=== PATIENT | male | born 1990 | race African-American/Black ===

== ENCOUNTER 2018-11-22 09:52 | Emergency (ER) | payer MEDICAID, SELFPAY ==
[2018-11-22 09:53] VITALS: BP 111/64; PULSE 92; RESP 17; TEMP 36.8; O2SAT 97; BMI 29.1
--- NOTE | 2018-11-22 10:41 | ED.VIS.GEN ---
History of Present Illness Chief Complaint: Bite Informant: Patient Onset: Today Current Severity: Mild Narrative: Patient indicates he was bitten by family dog pet left hand once, dog is healthy, his tetanus is up-to-date, he is right-handed, no other complaints he did apply some glue to the laceration as it was bleeding he denies any numbness weakness paresthesias Past Medical History - Allergies and Home Meds Allergies/Adverse Reactions: Allergies No Known Allergies Allergy (Verified 11/22/18 09:53) Primary Care Physician: Care Physician,No Primary [Primary Care Provider] - Past Medical History: - Smoking Status: Never smoker Review of Systems ROS: - Unremarkable as above General: Denies: Chills, Fever, Sweats Eyes: Denies: Visual changes - bilaterally, Diplopia ENT: Denies: Rhinorrhea, Sore throat Cardiovascular: Denies: Chest pain, Palpitations Respiratory: Denies: Dyspnea, Cough, Dyspnea on exertion Gastrointestinal: Denies: Abdominal pain, Nausea, Vomiting, Diarrhea, Melena, Hematochezia Genitourinary: Denies: Dysuria, Hematuria, Frequency Musculoskeletal: Reports: - - Dog bite left hand as above. Denies: Back pain, Extremity Pain Skin: Denies: Rash, Wounds Neurological: Denies: Headache, Weakness, Numbness Physical Exam Vital Signs/Narrative: Vital Signs Temp Pulse Resp BP Pulse Ox 11/22/18 09:53 98.3 F 92 17 111/64 97 General: Well nourished, Well developed, No Acute Distress Head: Normocephalic, Atraumatic Eyes: Perrl, EOMI ENT: Moist mucous membranes, No rhinorrhea Neck: Supple, Nontender Cardiovascular: Regular rate, Regular rhythm, No murmurs Respiratory: No distress, CTA bilaterally, Chest nontender Abdomen: Soft, Nontender, Nondistended, Normal bowel sounds Back: Nontender, Normal Inspection Extremities: Nontender, No edema, - - He has a laceration 1 cm in the area of the left hand index webspace, it was only partially closed, we did break away the glue to the best of ability, to open the laceration, laceration was then cleansed with soap copiously irrigated in the sink, and then again cleansed with Shur-Clens and copiously irrigated with saline vascular function is normal to all digits flexion extension sensation some minimal pain Skin: Normal color, No rash Neurological: Alert, Oriented x3, Cranial nerves II-XII grossly intact, Normal Strength, Normal Sensation Psychological: Normal affect, Normal Mood Diagnostic/Tx/Re-eval - Medical Decision Making I had a long conversation with the patient his I explained they were concerned that the laceration required suturing or glue I explained this is not indicated for dog bite as it could lead to serious infections and we did break down the glue irrigated copiously he will be started on antibiotics pain management he will follow-up with orthopedics or plastic surgery, he understands risk of infection his tetanus status is up-to-date, he is not to apply glue or any other mechanism to close the wound, he voices clear understanding of that, he is to return for signs of infection, he will be discharged on Augmentin and Naprosyn bulky hand dressing follow-up with Dr. Allred ED Disposition - Plan for ED Patient: Diagnosis: Dog bite Instructions: Dog Bite Prescriptions: Amox/Clavulanate Tablet [Augmentin Tablet] 875 mg PO Q12H #20 tab Prescription Printed Naproxen [Naprosyn] 500 mg PO BID PRN #20 tab Prescription Printed Referrals: Care Physician,No Primary [Primary Care Provider] - Desmond Allred MD [STAFF PHYSICIAN] -
[2018-11-22] MEDS: Amox/Clavulanate 875 MG Tablet PO (10:42)
[2018-11-22] MEDS: HYDROcodone Bitartrate/Apap 5/325 Tablet PO (10:42)
[2018-11-22 10:43] VITALS: BP 107/71; PULSE 74; RESP 18; O2SAT 95
--- NOTE | 2018-11-22 10:47 | ED.DEP ---
ED Disposition - Plan for ED Patient: Diagnosis: Dog bite Instructions: Dog Bite Prescriptions: Amox/Clavulanate Tablet [Augmentin Tablet] 875 mg PO Q12H #20 tab Prescription Printed Naproxen [Naprosyn] 500 mg PO BID PRN #20 tab Prescription Printed Referrals: Desmond Allred MD [STAFF PHYSICIAN] - Care Physician,No Primary [Primary Care Provider] -
== END 2018-11-22 10:48 | disposition home or self-care (01) ==
PROVIDERS: Emergency Provider Emergency Medicine
DX: S61.452A Open bite of left hand, initial encounter (principal); W54.0XXA Bitten by dog, initial encounter; Y93.9 Activity, unspecified; Y92.9 Unspecified place or not applicable; Y99.9 Unspecified external cause status
CPT/HCPCS: 99283

== ENCOUNTER 2021-08-08 02:21 | Emergency (ER) | payer MEDICAID, SELFPAY ==
[2021-08-08 02:22] VITALS: BP 138/101; PULSE 78; RESP 18; TEMP 36.8; O2SAT 97; BMI 32.7
--- NOTE | 2021-08-08 02:51 | EDS_ITS ---
HPI HPI - GI History of Present Illness Chief Complaint: Abd Pain Informant: patient Abdominal Pain/Flank Pain Onset: Days Context: Gradual Onset Timing: Continuous Quality: Aching Location: Epigastric and LUQ Current Severity: Mild Maximum Severity: Mild Worsened by: Food Relieved by: Nothing Nausea/Vomiting/Emesis GI Symptom: Positive for Nausea and Vomiting Onset: Days Quality: Positive for Blood streaks Severity: Mild Diarrhea/Melena/Hematochezia GI Symptom: Negative for Diarrhea, Melena and Hematochezia Associated Symptoms Associated Symptoms: Negative for Dysuria, Frequency, Hematuria and Urgency Narrative Narrative: 31-year-old male no significant past medical history recently tested COVID positive on Saturday. States in the evening he started having a left upper and epigastric dull discomfort with associated nausea vomiting. Believes when he threw up there was a small amount of blood. No large clots. No melena. No fever. He did have loose stools on Saturday. He denies any prior abdominal surgery. Prior similar symptoms: No Recent Illness/Hospitalization: No PFSH PFSH Medical History no medical history no medical history Home Medications ondansetron 4 mg PO Q8H PRN #7 tab 08/08/21 [Rx Last Taken Unknown] pantoprazole [Protonix] 20 mg PO DAILY 20 Days #20 tab 08/08/21 [Rx Last Taken Unknown] sodium chloride [Afrin Saline Nasal Mist] 1 spray INTRANASAL BID PRN 08/08/21 [History Last Taken Unknown] Allergy/AdvReac Type Severity Reaction Status Date / Time No Known Allergies Allergy Verified 11/22/18 09:53 Social History Smoking Status: Never smoker ROS ROS ED ROS Narrative Abdominal pain with nausea and vomiting Review of Systems ROS Unobtainable: Denies due to encephalopathy Constitutional Constitutional ED: Denies fever(s) ENT ENT ED: Denies ear pain Cardiovascular Cardiovascular: Denies chest pain Respiratory/Chest Respiratory/Chest: Denies dyspnea Gastrointestinal Gastrointestinal: Reports abdominal pain, nausea and vomiting; Denies constipation, diarrhea or melena Genitourinary Genitourinary ED: Denies dysuria Musculoskeletal Musculoskeletal: Denies myalgias Integumentary Denies rash Neurologic Neurologic: Denies headache(s) Psychiatric Psychiatric: Denies depression Endocrine Endocrinology: Denies polyuria Hematologic/Lymphatic Hematologic/Lymphatic: Denies easy bruising Allergic/Immunologic Allergic/Immunologic ED: Denies urticaria EXAM Physical Exam Narrative Exam Narrative: 31-year-old male no acute distress vital signs stable afebrile. H EENT exam unremarkable. Neck nontender no lymphadenopathy. Lungs clear to auscultation bilaterally. Heart regular rhythm rate about 80 no murmur. Abdomen soft nondistended normal bowel sounds no peritoneal signs. Currently do not have any significant tenderness. He states when he has the pain its epig astric and left upper quadrant. Right upper quadrant right lower quadrant completely nontender. No hernia or mass. No distention no signs of obstruction. Positive bowel sounds. Moving all 4 extremities. Neurologically is awake and alert with no focal motor deficits. Const Vital Signs: 08/08/21 02:22 Temperature 98.3 F Temperature Source Oral Pulse Rate 78 Respiratory Rate 18 Blood Pressure 138/101 H Blood Pressure Mean 113 Pulse Ox 97 Oxygen Delivery Method Room Air Positive well nourished, well developed and obese; Negative for cachectic, contractures or unkempt General Appearance ED: well developed and NAD; Negative for unkempt, cachectic, contractures or pallor Nutritional Appearance: obese; Negative for cachectic HEENT Reports moist mucous membranes normocephalic and atraumatic; Negative for trauma or tenderness Eyes PERRL and EOMs intact bilaterally Neck no lymphadenopathy, supple and no JVD General: Negative for tenderness Resp normal respiratory effort and clear to auscultation bilaterally Auscultation: Negative for rales, rhonchi or wheezes Cardio regular rate, regular rhythm, S1 normal heart sound, S2 normal heart sound and no murmurs GI non-tender, non-distended and no masses Auscultation: normoactive bowel sounds Palpation: soft; Negative for tender, guarding, rigid or rebound tenderness present Back/Spine no CVA tenderness General Back: Negative for CVA tenderness Extremity full ROM General Extremety ED: Negative for edema or tenderness General Extremity: Negative for edema Neuro moves all extremities Sensorium / Orientation: alert, oriented to person, oriented to place and oriented to time; Negative for orientation impaired, confused, lethargic or stuporous Motor Exam: strength 5/5 throughout Psych mental status grossly normal and thought process normal Appearance: Negative for unkempt Attitude: No agitated Mood & Affect: Negative for depressed or tearful Skin no wounds General Skin Exam: Negative for jaundice or pallor Lesions: no lesions and No lesion noted Rashes: no rashes and No rashes noted MDM MDM MDM Narrative Medical decision making narrative: 31-year-old male with abdominal pain with nausea vomiting. Exam is benign. He has had a small amount of blood-streaked emesis. Did not sound like a [place] tear because it occurred with his first episode emesis. Labs are pending. Currently I do not think he needs any imaging. He will be given IV Zofran and IV fluids. Repeat exam patient is doing well at 3:25 AM. We went over his test results. He will be discharged home with Protonix for gastritis or even a possible ulcer. Zofran for nausea. He knows if he has recurrent hematemesis or melena he needs to be evaluated. His abdomen currently is benign. Lab Data Attestation: I reviewed the patient's lab results. Lab results narrative: CBC shows a white count of 4.9. H&H is 17 and 50. Electrolytes show a gap of 8. A normal BUN of 10 and creatinine 1.2. Liver enzymes show an AST at 90 and ALT of 68. Normal total bilirubin. Lipase 61. Labs: Laboratory Results - last 24 hr 08/08/21 08/08/21 02:58 02:58 WBC 4.9 RBC 6.25 H Hgb 17.4 H Hct 50.7 MCV 81.1 MCH 27.8 MCHC 34.3 RDW Std Deviation 36.4 RDW Coeff of Kishan 12.4 Plt Count 220 MPV 10.0 Immature Gran % (Auto) 0.400 Neut % (Auto) 57.9 Lymph % (Auto) 30.5 [place] % (Auto) 10.8 H Eos % (Auto) 0.2 Baso % (Auto) 0.2 Absolute Neuts (auto) 2.8 Absolute Lymphs (auto) 1.50 Nucleated RBC % 0 Sodium 136 Potassium 3.5 Chloride 104 Carbon Dioxide 24.0 Anion Gap 8 BUN 10 Creatinine 1.21 Estim Creat Clear Calc 84.79 Est GFR (MDRD) Af Amer 89 Est GFR (MDRD) Non-Af 74 BUN/Creatinine Ratio 8.3 L Glucose 101 Calcium 8.7 Total Bilirubin 0.50 AST 90 H ALT 68 H Alkaline Phosphatase 45 Total Protein 7.5 Albumin 3.7 Globulin 3.8 Albumin/Globulin Ratio 1.0 Lipase 61 L Discharge Plan Triage Chief Complaint: Abd Pain ED Provider: Kyle Jon Dx/Rx/DC Orders Clinical Impression: Abdominal pain, Nausea & vomiting, Hematemesis Instructions: ED Gastritis (Adult), ED Abdominal Pain Unkn Cause Male... Prescriptions: New pantoprazole [Protonix] 20 mg tablet,delayed release (DR/EC) 20 mg PO DAILY 20 Days Qty: 20 RF: 0 ondansetron 4 mg tablet,disintegrating 4 mg PO Q8H PRN (Reason: nausea and vomiting) Qty: 7 RF: 0 No Action Afrin Saline Nasal Mist 0.65 % Mist 1 spray INTRANASAL BID PRN (Reason: ALLERGIES) RF: 0 Primary Care Provider: Care Physician,No Primary Referrals: Adis Russell MD [STAFF PHYSICIAN] - 1 Week if not improving Care Physician,No Primary [Primary Care Provider] - Activity Restrictions/Additional Instructions: Plenty of fluids and rest. Increase your diet slowly as tolerated. Zofran as needed for nausea. You may swallow if you are too nauseated to swallow and let it dissolve under your tongue. You only need to take it if you are having nausea or vomiting. Protonix is a medication for your stomach in case you have gastritis which is inflammation in your stomach or an early ulcer. Take it once daily. Follow-up with a local primary care physician if you have worsening throwing up of blood or black stools you need reevaluated. If this continues you may need a upper scope to look at your esophagus and stomach. Disposition Disposition: Home, Self Care
[2021-08-08] MEDS: 0.9% Normal Saline 1,000 ML 1000 ML IV (02:56)
[2021-08-08] MEDS: Ondansetron 4 MG/2 ML Vial IV (02:56)
[2021-08-08 03:02] LABS: Absolute Neutrophil Count 2.8 X10^3/uL (2.0-7.7); Basophil# 0.01 X10^3/uL; Basophil% 0.2 % (0-1); Eosinophil# 0.01 X10^3/uL; Eosinophils% 0.2 % (0-5); Hematocrit 50.7 % (40-54); Hemoglobin 17.4 g/dL (13.0-16.5); Lymphocyte % 30.5 % (19-41); Mean Corp Hgb Conc 34.3 g/dL (32-36); Mean Corpuscular Hgb 27.8 pg (27.0-32.0); Mean Corpuscular Volume 81.1 fL (80-94); Monocyte# 0.53 X10^3/uL; Monocyte% 10.8 % (0-10); NRBC Flagged by Analyzer 0 % (0-5); Neutrophil # 2.84 X10^3/uL (2.7-7.7); Neutrophil % 57.9 % (47-70); Platelet Count 220 K/mm3 (150-450); RBC Distribution Width CV 12.4 % (11.6-14.6); RBC Distribution Width SD 36.4 fl (35.1-43.9); Red Blood Count 6.25 M/mm3 (4.6-6.2); White Blood Count 4.9 K/mm3 (4.4-11.0)
[2021-08-08 03:19] LABS: AST(SGOT) 90 U/L (15-37); Alanine Aminotransfer ALT/SGPT 68 U/L (16-61); Albumin, Serum 3.7 g/dL (3.2-5.0); Alkaline Phosphatase 45 U/L (45-117); Anion Gap 8 (5-15); BUN 10 mg/dL (7-18); BUN/Creat Ratio 8.3 RATIO (10-20); Calcium,Total 8.7 mg/dL (8.5-10.1); Chloride 104 mmol/L (98-107); Creatinine, Serum 1.21 mg/dL (0.70-1.30); EST Glomerular Filtration Rate 74 mL/min (>60); Est Glom Filt Rate - Afr Amer 89 mL/min (>60); Estimated Creatinine Clearance 84.79 ml/min; Globulin 3.8 g/dL (2.2-4.2); Glucose 101 mg/dL (74-106); Lipase 61 U/L (73-393); Potassium 3.5 mmol/L (3.5-5.1); Protein, Total 7.5 g/dL (6.4-8.2); Sodium Level 136 mmol/L (136-145)
[2021-08-08 03:46] VITALS: BP 128/60; PULSE 90; RESP 18; O2SAT 98
== END 2021-08-08 03:47 | disposition home or self-care (01) ==
PROVIDERS: Emergency Provider Emergency Medicine; Visit Provider Emergency Medicine
DX: K92.0 Hematemesis (principal); R10.12 Left upper quadrant pain; R10.13 Epigastric pain
CPT/HCPCS: 80053; 83690; 85025; 96361; 96374; 99284; J7030; A4216; J2405

== ENCOUNTER 2023-01-27 13:03 | Emergency (ER) | payer MEDICAID, SELFPAY ==
[2023-01-27 13:06] VITALS: BP 118/66; PULSE 100; RESP 19; TEMP 36.5; O2SAT 95; BMI 34.7
--- NOTE | 2023-01-27 13:18 | RAD_ITS ---
STUDY: X-RAY - BILATERAL HANDS REASON FOR EXAM: Male, 32 years old. trauma TECHNIQUE - RIGHT HAND: 3 view(s) of the right hand were obtained. TECHNIQUE - LEFT HAND: 3 view(s) of the left hand were obtained. COMPARISON: None. FINDINGS - RIGHT HAND: Normal visualized carpal bones and carpal articulations. Normal carpometacarpal articulation of the thumb. Normal second through fifth carpometacarpal joints. Normal metacarpi. Normal metacarpophalangeal (MCP) joints. Normal visualized phalanges and interphalangeal joints. The soft tissue structures are unremarkable. Incidental note made of a likely surgically reduced enchondroma in the distal aspect of the middle phalanx of the index finger. FINDINGS - LEFT HAND: Normal visualized carpal bones and carpal articulations. Normal carpometacarpal articulation of the thumb. Normal second through fifth carpometacarpal joints. Normal metacarpi. Normal metacarpophalangeal (MCP) joints. Normal visualized phalanges and interphalangeal joints. The soft tissue structures are unremarkable. RAD/Hand Min 3 Views IMPRESSION: Right Hand: No acute abnormalities Left Hand: No acute abnormalities Electronically Signed: Wayne Dial MD at 13:41 EST ,
--- NOTE | 2023-01-27 13:18 | RAD_ITS ---
STUDY: X-RAY - LEFT ANKLE REASON FOR EXAM: Male, 32 years old. Trauma TECHNIQUE: 3 view(s) of the ankle. COMPARISON: None. FINDINGS: Acute minimally displaced spiral fracture in the distal fibula with soft tissue swelling. Normal visualized distal tibia. Normal medial and lateral malleoli. Normal tibiotalar articulation and ankle mortise. Normal visualized talus and calcaneus. The visualized subtalar, talonavicular, calcaneocuboid and tarsal articulations are normal. The soft tissue structures are unremarkable. RAD/Ankle min 3 Views IMPRESSION: Acute minimally displaced osteochondral fracture in the distal fibula with soft tissue swelling Electronically Signed: Wayne Dial MD at 13:40 EST ,
--- NOTE | 2023-01-27 13:20 | CT_ITS ---
STUDY: CT CERVICAL SPINE WITHOUT CONTRAST REASON FOR EXAM: Male, 32 years old. Headache after trauma RADIATION DOSAGE (If Supplied By Facility): CTDIvol = ( 25.94 ) mGy, DLP = ( 539.23 ) mGycm TECHNIQUE: High resolution transaxial imaging was performed without contrast material. Sagittal and coronal images were reconstructed. Individualized dose optimization techniques were used for this CT. COMPARISON: None FINDINGS: Normal craniovertebral junction. Normal anterior atlantoaxial articulation. Normal odontoid process. There is straightening of the normal cervical lordosis. Normal vertebral bodies and posterior osseous elements. C2-3: Normal endplates. Normal disc height and morphology. Normal central canal and intervertebral neuroforamina. C3-4: Normal endplates. Normal disc height and morphology. Normal central canal and intervertebral neuroforamina. C4-5: Normal endplates. Normal disc height and morphology. Normal central canal and intervertebral neuroforamina. C5-6: Normal endplates. Normal disc height and morphology. Normal central canal and intervertebral neuroforamina. C6-7: Normal endplates. Normal disc height and morphology. Normal central canal and intervertebral neuroforamina. C7-T1: Normal endplates. Normal disc height and morphology. Normal central canal and intervertebral neuroforamina. Normal visualized soft tissue structures. CT/Spine Cervical without Contras IMPRESSION: Normal unenhanced CT examination of the cervical spine. Electronically Signed: Wayne Dial MD at 14:21 EST ,
--- NOTE | 2023-01-27 13:20 | CT_ITS ---
STUDY: CT CHEST, ABDOMEN T PELVIS WITH CONTRAST REASON FOR EXAM: Male, 32 years old. Pain after trauma RADIATION DOSAGE (If Supplied By Facility): CTDIvol = ( 23.78 ) mGy, DLP = ( 2224.72 ) mGycm TECHNIQUE: Transaxial imaging was performed following intravenous administration of IV 100mL [id number]-[id number]. Multiplanar coronal and sagittal images were reformatted. Individualized dose optimization techniques were used for this CT. COMPARISON: No relevant priors. FINDINGS: CHEST The lungs are normal. There is no demonstrated pleural abnormality. Normal heart and pericardium. Normal mediastinum. Normal hilar regions. Normal unenhanced pulmonary arteries. Normal aorta arch and descending thoracic aorta. Normal osseous structures. ABDOMEN Normal liver. Normal gallbladder and extrahepatic biliary system. Normal spleen. Normal pancreas. Normal bilateral adrenal glands. Normal right kidney. Normal left kidney. Normal visualized stomach. Normal small intestine. Normal colon. The appendix is visualized and appears normal. Appendix seen on coronal recon images 53 through 61 Normal abdominal aorta. Normal inferior vena cava. Normal retroperitoneum. PELVIS Normal urinary bladder. There is no pelvic fluid. There is no pelvic lymphadenopathy or mass lesion. Normal visualized pelvic arteries. CT/CT Chest, Abd, Pel w/Contrast IMPRESSION: No acute pulmonary process No suspicious solid organ abnormality No free intraperitoneal fluid, air, or suspicious adenopathy No demonstrated vertebral body, rib, or pelvic fracture Electronically Signed: Wayne Dial MD at 14:26 EST ,
--- NOTE | 2023-01-27 13:20 | CT_ITS ---
STUDY: CT BRAIN WITHOUT CONTRAST REASON FOR EXAM: Male, 32 years old. Headache after trauma RADIATION DOSAGE (If Supplied By Facility): CTDIvol = ( 44.99 ) mGy, DLP = ( 779.24 ) mGycm TECHNIQUE: Transaxial CT imaging of the brain was performed without administration of intravenous contrast material. Individualized dose optimization techniques were used for this CT. COMPARISON: No relevant priors. FINDINGS: Normal soft tissue structures. Normal calvarium. Normal size ventricles and extra-axial spaces for the patient''s age. Normal white matter tracts of the cerebral hemispheres. Normal basal ganglia and thalami. Normal brainstem. Normal cerebellum. There is no intracranial hemorrhage. There are no findings of an acute ischemic infarction. Normal visualized paranasal sinuses. CT/Brain/Head without Contrast IMPRESSION: Normal unenhanced CT scan of the brain. Electronically Signed: Wayne Dial MD at 14:20 EST ,
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
[2023-01-27 13:26] VITALS: O2SAT 97
[2023-01-27] MEDS: Morphine 4 MG/ML Syringe IV (13:26)
[2023-01-27] MEDS: Lidocaine 1% (20 ml mdv) 20 ML Vial INFILT (13:26)
[2023-01-27] MEDS: Ondansetron 4 MG/2 ML Vial IV (13:26)
[2023-01-27] MEDS: Diphth,Pertuss(Acell),Tet Vac 0.5 ML Vial IM (14:06)
[2023-01-27 14:13] LABS: Absolute Lymphocyte Count 1.07 X10^3/uL (0.83-4.51); Absolute Neutrophil Count 11.6 X10^3/uL (2.0-7.7); Basophil# 0.04 X10^3/uL; Basophil% 0.3 % (0-1); Eosinophil# 0.08 X10^3/uL; Eosinophils% 0.6 % (0-5); Hematocrit 48.7 % (40-54); Hemoglobin 16.1 g/dL (13.0-16.5); Lymphocyte # 1.07 X10^3/ul (0.83-4.51); Lymphocyte % 7.9 % (19-41); Mean Corp Hgb Conc 33.1 g/dL (32-36); Mean Corpuscular Hgb 27.9 pg (27.0-32.0); Mean Corpuscular Volume 84.3 fL (80-94); Mean Platelet Vol. 9.9 fl (6.2-12.0); Monocyte# 0.65 X10^3/uL; Monocyte% 4.8 % (0-10); NRBC Flagged by Analyzer 0 % (0-5); Platelet Count 271 K/mm3 (150-450); RBC Distribution Width CV 12.6 % (11.6-14.6); RBC Distribution Width SD 37.7 fl (35.1-43.9); Red Blood Count 5.78 M/mm3 (4.6-6.2); White Blood Count 13.5 K/mm3 (4.4-11.0)
[2023-01-27 14:36] LABS: AST(SGOT) 20 U/L (15-37); Alanine Aminotransfer ALT/SGPT 25 U/L (16-61); Albumin, Serum 3.3 g/dL (3.2-5.0); Alkaline Phosphatase 46 U/L (45-117); Anion Gap 4 (5-15); BUN 14 mg/dL (7-18); BUN/Creat Ratio 12.1 RATIO (10-20); Bilirubin, Direct 0.13 mg/dL (0.00-0.30); Chloride 95 mmol/L (98-107); Creatinine, Serum 1.16 mg/dL (0.70-1.30); EST Glomerular Filtration Rate 77 mL/min (>60); Est Glom Filt Rate - Afr Amer 93 mL/min (>60); Estimated Creatinine Clearance 87.63 ml/min; Globulin 3.3 g/dL (2.2-4.2); Glucose 106 mg/dL (74-106); Lipase 51 U/L (13-75); Protein, Total 6.6 g/dL (6.4-8.2); Sodium Level 124 mmol/L (136-145)
[2023-01-27 15:00] VITALS: BP 112/81; PULSE 79
== END 2023-01-27 16:33 | disposition home or self-care (01) ==
PROVIDERS: Emergency Provider Emergency Medicine; Visit Provider Emergency Medicine
DX: S61.411A Laceration without foreign body of right hand, initial encounter (principal); S16.1XXA Strain of muscle, fascia and tendon at neck level, initial encounter; R10.9 Unspecified abdominal pain; S82.62XA Displaced fracture of lateral malleolus of left fibula, initial encounter for closed fracture; S62.511A Displaced fracture of proximal phalanx of right thumb, initial encounter for closed fracture; S61.412A Laceration without foreign body of left hand, initial encounter; R51.9 Headache, unspecified; V23.49XA Other motorcycle driver injured in collision with car, pick-up truck or van in traffic accident, initial encounter; Z23 Encounter for immunization
CPT/HCPCS: 12001; 70450; 71260; 72125; 73130; 73610; 74177; 80048; 80076; 83690; 85025; 90715; 96374; 96375; 99285; Q9967; A4216; J2405

== ENCOUNTER 2023-01-31 12:30 | Day surgery (SDC) | payer MEDICAID, SELFPAY ==
[2023-01-31] VITALS (9 sets, daily range): BP systolic 120–158; BP diastolic 72–117; PULSE 77–105; RESP 16–18; TEMP 36.1–37.3; O2SAT 94–99; BMI 31.9
[2023-01-31] MEDS: Lactated Ringers 1,000 ML 15 ML IV (13:06)
[2023-01-31] MEDS: Cefazolin 2 GM in 0.9% Normal Saline (100mL Bag) 100 ML IV (14:21)
--- NOTE | 2023-01-31 14:40 | RAD_ITS ---
STUDY: X-RAY - LEFT ANKLE REASON FOR EXAM: Male, 32 years old. FX TECHNIQUE: 3 view(s) of the ankle. COMPARISON: 01/27/2023 FINDINGS: 6 seconds of fluoroscopy of the left ankle was utilized operating room during open reduction internal fixation of fracture of the distal fibula and for images are limited for interpretation. . RAD/Ankle min 3 Views IMPRESSION: Fluoroscopy during open reduction internal fixation of fracture of the distal fibula. Electronically Signed: Oliver Forrest MD at 18:03 EST ,
--- NOTE | 2023-01-31 15:47 | DCINST_ITS ---
Discharge Instructions Follow Up Care Test Results: Test results from this visit will be discussed in further detail at your follow- up appointment, if applicable. Discharge Plan Admission Attending Provider: Adair Khan Primary Care Provider: Care Physician,No Primary Instructions Additional Instructions / Restrictions: Follow preprinted instructions from your surgeons office Discharge Orders/Prescriptions Prescriptions: New oxycodone 5 mg tablet 5 mg PO Q6H PRN (Reason: pain) 7 Days Qty: 28 0RF Discontinued oxycodone-acetaminophen [oxycodone-acetaminophen] 5-325 mg tablet 1 tab PO Q6H PRN PRN (Reason: pain) 5 Days Qty: 20 0RF No Action ibuprofen [Advil] 200 mg tablet 200 mg PO Q8H sodium chloride 0.65 % mist 1 spray intranasal BID PRN (Reason: ALLERGIES) Referrals / Follow Up: Adair Khan DO [Med Staff - Active Staff] - Care Physician,No Primary [Primary Care Provider] - Disposition Disposition (needs filled in before D/C Order can be placed): Home, Self Care
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
[2023-01-31] MEDS: Ketorolac 30 MG/ML Syringe IV (16:47)
== END 2023-01-31 17:39 | disposition home or self-care (01) ==
LOC: SDC 12:33 → AC 12:34
PROVIDERS: Referring Provider Student in an Organized Health Care Education/Training Program; Visit Provider Student in an Organized Health Care Education/Training Program
PROC: (CPT 27792; principal; 2023-01-31 13:40)
DX: S82.62XA Displaced fracture of lateral malleolus of left fibula, initial encounter for closed fracture (principal); V23.49XA Other motorcycle driver injured in collision with car, pick-up truck or van in traffic accident, initial encounter; E66.8 Other obesity; R03.0 Elevated blood-pressure reading, without diagnosis of hypertension; Z68.33 Body mass index [BMI] 33.0-33.9, adult
CPT/HCPCS: 27792; 01480; 64445; 73610; 76000; C1713; J7120; J2405